=== PATIENT | female | born 1995 ===

== ENCOUNTER 2024-02-24 06:41 | Inpatient (IN) ==
--- OUTSIDE RECORDS SUMMARY | 2024-02-24 06:48 | External Medical Summary | Summary of Care ---
Author Name Unknown Organization [facility] Address [address] [place] [address] Phone [phone] Care Team Providers Care Scrum Project Manager Name Role Phone Juliet Valenzuela PA-C Primary Care Provider Reason for Visit * Reason Comments Return Visit Encounter Details Date Type Department Care Team (Late st Contact Info) Description 02/22/2024 12:30 PM EST Office Visit Gynecology/Obstetric s Ana Reynolds [address] [place] [phone] Jeffery Copeland MD [address] [place] [phone] Normal in third trimester*; Health counseling; Diet controlled gestational diabetes mellitus (GDM) in third trimester Allergies No known active allergiesdocumented as of this encounter (statuses as of 02/22/2024) Medications 28-0.8 MG Oral Tablet Take by mouth. Active Iron 325 (65 Fe) MG Oral Tablet Take by mouth. Active OneTouch Verio Flex System w/Device KitIndications:G estational diabetes mellitus (GDM) in third trimester, gestational diabetes method of control unspecified Use to test blood sugars 4 times daily (fasting, 1 hour after breakfast, lunch, and dinner) 1 Kit 12/11/2023 Active OneTouch Verio In Vitro Strip (Glucose Blood)Indication s:Gestational diabetes mellitus (GDM) in third trimester, gestational diabetes method of control unspecified Use to test blood sugars 4 times daily (fasting, 1 hour after breakfast, lunch, and dinner) 125 Strip 6 12/11/2023 Active Timmy Lindsey Lancets 30GIndications:G estational diabetes mellitus (GDM) in third trimester, gestational diabetes method of control unspecified Use to test blood sugars 4 times daily (fasting, 1 hour after breakfast, lunch, and dinner) 200 Each 6 12/11/2023 Active documented as of this encounter (statuses as of 02/22/2024) Active Problems Problem Noted Date Diagnosed Date Supervision of high risk in third trim katherine 12/18/2023 Gestational diabetes mellitus (GDM) in third tri mester 12/11/2023 Overview (02/18/2024): Diagnosed at 29 weeks Nutrition consult ordered Lab Results Component Value Date/Time 50-G GESTATIONAL GLUCOSE, 1 HOUR - [facility] 169 (H) 11/28/2023 10:35 AM 100-G GESTATIONAL GLUCOSE, 1 HOUR - [facility] 192 (H) 12/11/2023 09:40 AM 100-G GESTATIONAL GLUCOSE, 2 HOUR - [facility] 162 (H) 12/11/2023 10:43 AM 100-G GESTATIONAL GLUCOSE, 3 HOUR - [facility] 83 12/11/2023 11:40 AM 100-G GESTATIONAL GLUCOSE, FASTING - [facility] 85 12/11/2023 08:36 AM She reports her home blood glucose as following: DATE Fasting 1 hr after Breakfast 1 hr after Lunch 1 hr after Dinner 12/12/2023 99 12/13/23 82 130 113 120 12/14/23 86 106 153 Chipotle burrito x 12/15/23 85 153 102 118 12/16/23 76 99 106 77 12/17/23 87 155 Cereal x 96 12/18/23 92 121 12/18/23: MFM ADAPT consult complete. Referred to [facility]. Instructions provided to report blood sugars each week for MFM review. Reviewed diet & exercise recommendations. 12/24/23: RPM reviewed; Stable 01/01/20243546-BMY-dmpwmy. Some missed post prandial values. 01/08/20248495-KBJ-zvowwoc stable (< 50% elevated). Multiple missed readings. Sent message to be consistent with testing four times daily and reporting. 01/16/20241971-YNM-vvaolbxf one fasting number in the past week. Sent message via [employer] melanie asking her to update. Sent message to patient and [facility] to schedule follow up ADAPT appointment due to not reporting. 01/22/20243327-ENE-iscutmlw 2 days in the past week. Sent message via [employer] & Symptify asking her to update. Sent message to [facility] to schedule follow up ADAPT due to patient not reporting. 01/29/20243924-RLK-uobfbncn 2 days in the past week. Sent message to update numbers. 02/05/24: RPM reviewed; no readings reported for past 7 days. No show for adapt visit today.Message sent via [employer] and chat to update readings. 02/12/20246373-PWP-zaw reporting. Sent message via [employer] and Symptify reminding her of follow up ADAPT appointment scheduled 02/18/2024 02/12/24: Also notified patient's OB provider that patient is not reporting blood sugars to [facility] 02/18/24: Follow-up ADAPT visit complete; of those values reported, stable; encouraged consistent testing/reporting; continue diet controlled Assessment & Plan (12/21/2023 11:02 AM EDT): Working with ADAPT. Assessment & Plan (12/18/2023 1:24 PM EDT): CONSIDERATIONS: Reviewed etiology and risks associated with gestational diabetes mellitus (GDM), including risks to , fetus, and maternal progression to Type 2 DM. Instructed on proper use of glucometer; supplies ordered, if indicated. Advised that life-long screening for diabetes is recommended every 1-3 years. RECOMMENDATIONS: Recommend monitoring blood sugars with daily fasting blood sugar (maintained at less than 95) and 1 hour postprandial measurements (maintained at less than 140). Medications should be adjusted to maintain these target values. Report levels to M (Maternal- Medicine) weekly. Recommend nutrition consult with RDN (Registered Dietitian Automation Control Technician). Lifestyle changes are also indicated including optimizing gestational weight gain and physical activity of 30 minutes per day, if not otherwise contraindicated in . Insulin is preferred if medications are indicated to optimize euglycemia. Metformin (preferred over glyburide) may also be used in some circumstances. Reviewed the risks and benefits of each. Recommend ultrasound, surveillance and delivery as follows: A1GDM, delivery should be accomplished by 41w0d. A2GDM, recommend growth assessment with MFM every 4 weeks, initiate surveillance with twice weekly NSTs at 32 weeks and continue until delivery at 39 weeks. Recommend intrapartum monitoring every 1-2 hours (A2GDM) or every 4 hours (A1GDM) and treat with insulin if indicated. Recommend 2-hour glucose tolerance testing with 75-gram glucose load during admission (or 6-8 weeks if not completed). Health counseling 11/28/2023 Overview (02/22/2024): Problem Action Taken Date entered Entered by Date resolved [facility] 11/28/2023 Nayla Jefferson RN 11/28/2023 nutrition WIC program discussed. Due date letter given in case pt desires 11/28/2023 Nayla Jefferson RN 11/28/2023 Routine dental visits Dental care encouraged- referred to [facility] Family website 11/28/2023 Nayla Jefferson RN 11/28/2023 Problem Action Taken Date entered Entered by Date resolved Current needs or questions Patient denies having any current needs or questions 01/21/2024 Kathia Spence RN 01/21/2024 Problem Action Taken Date entered Entered by Date resolved Current needs or questions Patient denies having any current needs or questions 02/15/2024 Neha Bradshaw RN 02/15/24 Problem Action Taken Date entered Entered by Date resolved Current needs or questions Patient denies having any current needs or questions 02/22/2024 Kathia Spence RN 02/22/2024 Assessment & Plan (02/04/2024 2:03 PM EST): Problem Action Taken Date entered Entered by Date resolved bleeding Provider eval 02/04/2024 Nayla Jefferson RN 02/04/2024 Assessment & Plan (01/07/2024 12:10 PM EST): Problem Action Taken Date entered Entered by Date resolved Current needs or questions Patient denies having any current needs or questions 01/07/2024 Nayla Jefferson RN 01/07/2024 Assessment & Plan (12/11/2023 12:07 PM EDT): Problem Action Taken Date entered Entered by Date resolved Current needs or questions Patient denies having any current needs or questions 12/11/2023 Nayla Jefferson RN 12/11/2023 Normal 08/31/2023 Estimated Date of Delivery Comme nts Yes 02/29/2024 Based on Ultraso und documented as of this encounter (statuses as of 02/22/2024) Immunizations Name Administration Dates Next Due Covid-19 Ad26, Single Dose (Zacarias/J&J) 021 TDAP, Age 7 and older, IM (Adacel) 12/11/2023 documented as of this encounter Social History Tobacco Use Types Packs/Day Years Used Date Smoking Tobacco: Never Smokeless Tobacco: Never Alcohol Use Standard Drinks/Week Comments Not Currently 0 (1 standard drink = 0.6 oz pur e alcohol) Hunger Vital Sign Answer Date Recorded Within the past 12 months, y ou worried that your food would run out before you got the money to buy more. Never true 11/30/19 24 Within the past 12 months, t he food you bought just didn't last and you didn't have money to get more. Never true 11/30/2023 Childcare Answer Date Recorded Do you feel overwhelmed with taking care of a child, family member or friend? No 11/30/2023 Does your family need help f inding childcare? (Household - for ages 0-17 years) Not on file 11/30/2023 Clothing Answer Date Recorded Have you been unable to get clothing when it was really needed? No 11/30/2023 Is your family able to get c lothes or diapers when needed? (Household - for ages 0-17 years) Not on file 11/30/2023 Personal Safety Answer Date Recorded Do you feel unsafe or have concerns for your saf ety? No 11/30/2023 Do you have concerns for you r family's safety? (Household - for ages 0-17 years) Not on file 11/30/2023 Utilities Answer Date Recorded Do you have trouble paying y our heating, water, or electric bill? No 11/30/2023 Is your family able to pay t he heat, water, or electric bill? (Household - for ages 0-17 years) Not on file 11/30/2023 Does your family have access to good internet? (Household - for ages 0-17 years) Not on file 11/30/2023 Employment Status Answer Date Recorded Are you unemployed or without regular income? No 11/30/2023 Does the household have a [facility] source [facility] income? (Household - for ages 0-17 years) Not on file 11/30/2023 Social Connections Answer Date Recorded How often do you feel lonely or isolated from th ose around you? Never 11/30/2023 Financial Resource Strain Answer Date R ecorded Do you have any trouble payi ng for your medications, or do you think you might in the future? No 11/30/2023 Does your family have troubl e paying for medicine? (Household - for ages 0-17 years) Not on file 11/30/2023 Transportation Needs Answer Date Record ed READ ONLY Do you have troubl e getting a ride to medical visits or work? Never True 11/30/2023 Does your family have a hard time getting a ride to doctors visits? (Household - for ages 0-17 years) Not on file 11/30/2023 Has lack of transportation k ept you from medical appointments, meetings, work, or from getting things needed for daily living? Check all that apply. No 11/30/2023 Do you (or your family) have trouble finding or paying for a ride (transportation)? (Household - for ages 0-17 years) Not on file 11/30/2023 Housing Stability Answer Date Recorded Do you currently live in a s helter or have no steady place to sleep at night? No 11/30/2023 READ ONLY Do you think you a re at risk of becoming homeless? No 11/30/2023 Does your family worry about paying for your home or becoming homeless? (Household - for ages 0-17 years) Not on file 0 11/30/2023 Are you homeless or worried that you might be in the future? No 11/30/2023 Are you (or your family) dick eless or worried that you might be in the future? (Household - for ages 0-17 years) Not on file Food Insecurity Answer Date Recorded Do you need food for this week? No 11/30/2023 Are you able to get enough f ood for your family? (Household - for ages 0-17 years) Not on file 11/30/2023 Does your family need food t his week? (Household - for ages 0-17 years) Not on file 11/30/2023 Do you always have enough fo od for your family? (Household - for ages 0-17 years) Not on file 11/30/2023 Estimated Date of Delivery Comme nts Yes 02/29/2024 Based on Ultraso und Sex and Gender Information Value Date Recorded Sex Assigned at Female 07/12/2023 12:06 PM EDT Legal Sex Female 4:33 PM EDT Gender Identity Female 07/12/2023 12:06 PM EDT Sexual Orientation Straight 07/12/2023 12 :06 PM EDT documented as of this encounter Last Filed Vital Signs Vital Sign Reading Time Taken Comments Blood Pressure 118/70 02/22/2024 11:25 AM EST Pulse - - Temperature - - Respiratory Rate - - Oxygen Saturation - - Inhaled Oxygen Concentration - - Weight 89.8 kg (198 lb) 02/22/2024 11:25 AM EST Height 167.6 cm (5' 6") 02/22/2024 11:25 AM EST Body Mass Index 31.96 02/22/2024 11:25 AM EST documented in this encounter Progress Notes * Jeffery Copeland MD - 02/22/2024 12:19 PM EST Pt doing well HAKEEM and sono done for growth today EFW is 72 percentile Discussed and reviewed sono with pt Fetus is presently not macrosomic We have discussed /c/sec and induction of labor Pt an spouse are agreeable to induction VE; 1-2/50%/post Plan Ree fo induction of labor documented in this encounter Nursing Notes * Kathia Spence RN - 02/22/2024 11:37 AM EST Patient seen by [facility]. Patient denies any questions or concerns. Kathia Spence RN * Tammy Collins LPN - 02/22/2024 11:25 AM EST 39w0d Pt had growth today HAKEEM 12.0cm Growth 72% documented in this encounter Plan of Treatment Health Maintenance Due Date Last Done Comments Depression Screening 2008 Hepatitis B Vaccine (1 of 3 - 19+ 3-dose series) 10/23/2015 Pap Smear 2017 COVID-19 Vaccine (2 - 2023-2 5 season) 2023 11/25/2020 Influenza Vaccine (FLU shot) (#1) 2023 DTap/Tdap Vaccines (2 - Td o r Tdap) 12/10/2033 12/11/2023 HPV (Gardasil) Vaccine Aged Out No lo nger eligible based on patient's age to complete this topic MENINGOCOCCAL (MENACTRA/MENVEO) Aged Out No longer eligible based on patient's age to complete this topic Pneumococcal Vaccine: Pediat rics (0 to 5 Years) and At-Risk Patients (6 to 64 Years) Aged Out No longer eligi ble based on patient's age to complete this topic documented as of this encounter Medical Devices Not on filedocumented as of this encounter Visit Diagnoses Diagnosis Normal in third trimester- Primary Health counseling Other specified counseling SOB (shortness of breath) Shortness of breath Need for zagnxoryxv-mvpotsm-zomjvzamx (Tdap) vaccine Need for prophylactic vaccination with combined fehmtkvngx-qebzkfn-phauaiebc (DTP) vaccine Gestational diabetes mellitus (GDM) in third trimester, gestational diabetes method of control unspecified Diet controlled gestational diabetes mellitus (GDM) in third trimester- Primary Supervision of high risk in third trimester Unspecified high-risk with 29 completed weeks gestation Diet controlled gestational diabetes mellitus (GDM) in third trimester- Primary Encounter for anatomic survey 30 weeks gestation of state, incidental Normal in third trimester- Primary Health counseling Other specified counseling Diet controlled gestational diabetes mellitus (GDM) in third trimester Normal in third trimester- Primary Health counseling Other specified counseling Diet controlled gestational diabetes mellitus (GDM) in third trimester Vaginal bleeding in Unspecified antepartum hemorrhage, unspecified as to episode of care Normal in third trimester- Primary Health counseling Other specified counseling Diet controlled gestational diabetes mellitus (GDM) in third trimester documented in this encounter Care Teams Scrum Project Manager Relationship Specialty Start Date End Date Juliet Valenzuela PA-C [phone] [place] [phone] PCP - General Physician Mortgage Branch Manager 12/11/23 documented as of this encounter
--- OUTSIDE RECORDS SUMMARY | 2024-02-24 06:48 | External Medical Summary | Summary of Care ---
Author Name Unknown Organization [facility] Address [address] [facility] [place] [address] Phone [phone] Care Team Providers Care Marketing Proposal Coordinator Name Role Phone Juliet Valenzuela PA-C Primary Care Provider Reason for Visit * Reason Comments Follow Up Gestational diabetes Encounter Details Date Type Department Care Team ([facility] Contact Info) Description 02/18/2024 10:50 AM EST Telemedicine Entry Specialist Obstetric MFM [facility] [address] [place] [address] Amanda Cardona CRNP [address] [place] [address] Supervision of high risk in third trimester*; 38 weeks gestation of ; Diet controlled gestational diabetes mellitus (GDM) in third trimester Allergies No known active allergiesdocumented as of this encounter (statuses as of 02/18/2024) Medications 28-0.8 MG Oral Tablet Take by mouth. Active Iron 325 (65 Fe) MG Oral Tablet Take by mouth. Active OneTouch Verio Flex System w/Device KitIndications:G estational diabetes mellitus (GDM) in third trimester, gestational diabetes method of control unspecified Use to test blood sugars 4 times daily (fasting, 1 hour after breakfast, lunch, and dinner) 1 Kit 12/11/2023 Active [employer] Verio In Vitro Strip (Glucose Blood)Indication s:Gestational diabetes mellitus (GDM) in third trimester, gestational diabetes method of control unspecified Use to test blood sugars 4 times daily (fasting, 1 hour after breakfast, lunch, and dinner) 125 Strip 6 12/11/2023 Active Piece of CakeTouch Delica Lancets 30GIndications:G estational diabetes mellitus (GDM) in third trimester, gestational diabetes method of control unspecified Use to test blood sugars 4 times daily (fasting, 1 hour after breakfast, lunch, and dinner) 200 Each 6 12/11/2023 Active documented as of this encounter (statuses as of 02/18/2024) Active Problems Problem Noted Date Diagnosed Date [...] & exercise recommendations. 12/24/23: RPM reviewed; Stable 01/01/20245217-UUH-xwgwel. Some missed post prandial values. 01/08/20244792-NEZ-xluvlsy stable (< 50% elevated). Multiple missed readings. Sent message to be consistent with testing four times daily and reporting. 01/16/20246418-NYM-zedizqwb one fasting number in the past week. Sent message via [employer] maria elena asking her to update. Sent message to patient and [facility] PARs to schedule follow up ADAPT appointment due to not reporting. 01/22/20242480-FCW-ubhxxgtz 2 days in the past week. Sent message via [employer] & [employer] asking her to update. Sent message to [facility] PARs to schedule follow up ADAPT due to patient not reporting. 01/29/20247487-AZM-ccxcesqb 2 days in the past week. Sent message to update numbers. 02/05/24: RPM reviewed; no readings reported for past 7 days. No show for adapt visit today.Message sent via [employer] and chat to update readings. 02/12/20249180-AIQ-yxc reporting. Sent message via [employer] and [employer] reminding her of follow up ADAPT appointment scheduled 02/18/2024 02/12/24: Also notified patient's OB provider that patient is not reporting blood sugars to [facility] 02/18/24: Follow-up ADAPT visit complete; of those [...] maintain these target values. Report levels to MFM (Maternal- Medicine) weekly. Recommend nutrition consult with RDN (Registered Dietitian Fire Engineer). Lifestyle changes are also indicated including optimizing [...] if not completed). Health counseling 11/28/2023 Overview (02/15/2024): Problem Action Taken Date entered Entered by Date resolved First First 11/28/2023 Nayla Jefferson RN 11/28/2023 nutrition WIC program discussed. Due date letter given in case pt desires 11/28/2023 Nayla Jefferson RN 11/28/2023 Routine dental visits Dental care encouraged- referred to [facility] Family website 11/28/2023 Nayla Jefferson RN 11/28/2023 Problem Action Taken Date entered Entered by Date resolved Current needs or questions Patient denies having any current needs or questions 01/21/2024 Kathia Spence RN 01/21/2024 Problem Action Taken Date entered Entered by Date resolved Current needs or questions Patient denies having any current needs or questions 02/15/2024 Neha Bradshaw RN 02/15/24 Assessment & Plan (02/04/2024 2:03 PM EST): [...] as of this encounter (statuses as of 02/18/2024) Immunizations Name Administration Dates Next Due Covid-19 [...] No 11/30/2023 Does the household have a re gular source of income? (Household - for ages [...] PM EDT documented as of this encounter Progress Notes * Amanda Cardona, EDUARDA - 02/18/2024 10:45 AM EST Images from the original note were not included. MATERNAL MEDICINE VISIT Patient location: HOME. I was in a hospital or clinic location. After connecting through televideo,patient was verified with two unique identifiers. 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 Methods to assure confidentiality were taken. Patient acknowledged consent and understanding of pr ivacy and security of the Telemedicine visit. The patient agreed to participate. Balbina Zafar is a 28 year old year old with intrauterine at 38w3d who presents to [facility] for management of diabetes in . CC/HPI: Here for f/u visit. Current issues include: inconsistent testing and reporting - patient reports she was out of town and did not have meter; she has since resumed testing and reporting of blood sugars in RPM Current management: diet controlled Diet: gestational diabetes diet Exercise: walking and yoga ball Completed Nutrition visit on 01/08/2024. Recent growth scan: [facility] US: 12/21/2023 at 30w0d HAKEEM: 15.3 cm EFW: 1656g (68% Hadlock) Glucose review: She reports her home blood glucose as following per Current Health RPM: -She has no other blood sugars to review today. Hypoglycemia episodes: Denies REVIEW OF SYSTEMS: headaches: no nausea/vomiting: denies reports movement: yes (+ kick counts) abdominal pain/tenderness/cramping/contractions: no vaginal bleeding: no vaginal leaking of fluid: no all other systems negative PHYSICAL EXAM: LMP 05/18/2023 (Exact Date) Constitutional: well-developed, well nourished General: pleasant, alert and oriented Neuro: mood and affect normal, alert and oriented, no acute distress DISCUSSION: -We discussed the importance of testing and reporting blood sugars 4 times a day (fasting, one hourafter breakfast, lunch, and dinner). Encourage compliance with CH RPM. Phone number provided to patient for CH team for any troubleshooting if needed. -Briefly reviewed GDM diet recommendations including, avoiding processed sugars, sweetened drinks, white flour. Advised compliance with Fire Engineer. -Recommend eating a snack to help with sugar control in the fasting timeframe. -Encouraged 20-30 minutes a day of exercise (walking, light upper body strength training, yoga, stationary cycling, or swimming). -We discussed the goal of euglycemia in order to create a stable environment for the fetus. She is aware that with diabetes are at increased risk for multiple complications to both mother and fetus -I encouraged the patient to reach out to [facility] in the event that she has any questions regarding diabetes management. RECOMMENDATIONS: Management: continue diet controlled with more consistent testing/reporting Follow up for glucose management in 1 week via [facility] Maria Elena. Thank you for allowing us to participate in the care of this patient. Please call with any questions. EDUARDA Altman 02/18/2024 11:30 AM documented in this encounter Plan of Treatment Upcoming Encounters Date Type Department Care Team (Late st Contact Info) Description 02/22/2024 11:15 AM EST Imaging Radiology [facility] 2nd [facility] [address] [place] [address] 02/22/2024 12:30 PM EST Office Visit Gynecology/Obstetrics [facility] [address] [place] [place] [address] Jeffery Copeland MD [address] [facility] [place] [address] Health Maintenance Due Date Last Done Comments [...] of breath) Shortness of breath Need for ewirvkkbev-qigdkjo-zhlfwienm (Tdap) vaccine Need for prophylactic vaccination with combined rdouflwzib-maxklkv-cwzvkilbi (DTP) vaccine Gestational diabetes mellitus (GDM) in [...] hemorrhage, unspecified as to episode of care Supervision of high risk in third trimester- Primary Unspecified high-risk 38 weeks gestation of state, incidental Diet controlled gestational diabetes mellitus (GDM) in third trimester documented in this encounter Care Teams Marketing Proposal Coordinator Relationship Specialty Start Date End Date Juliet Valenzuela PA-C [address] [facility] [place] [address] PCP - General Physician Project Assistant 12/11/23 documented as of this encounter
--- OUTSIDE RECORDS SUMMARY | 2024-02-24 06:48 | External Medical Summary | Summary of Care ---
Author Name Unknown Organization [facility] Address [address] [facility] [place] [address] Phone [phone] Care Team Providers Care National Sales Executive Name Role Phone Juliet Valenzuela PA-C Primary Care Provider Reason for Visit * Reason Comments Return Visit Encounter Details Date Type Department Care Team (Late st Contact Info) Description 02/15/2024 2:45 PM EST Office Visit Gynecology/Obstetri jaden Reynolds [address] [place] [address] Amanda Bill PA-C [address] [place] [address] Nurse [facility] Narcisa [address] [place] [address] High-risk , third trimester*; Diet controlled gestational diabetes mellitus (GDM) in third trimester; Health counseling Allergies No known active allergiesdocumented as of this encounter (statuses as of 02/15/2024) Medications 28-0.8 MG Oral Tablet Take by mouth. Active Iron 325 (65 Fe) MG Oral Tablet Take by mouth. Active OneTouch Verio Flex System w/Device KitIndications:G estational diabetes mellitus (GDM) in third trimester, gestational diabetes method of control unspecified Use to test blood sugars 4 times daily (fasting, 1 hour after breakfast, lunch, and dinner) 1 Kit 12/11/2023 Active [employer] Verio In Vitro Strip (Glucose Blood)Indication s:Gestational diabetes mellitus (GDM) in third trimester, gestational diabetes method of control unspecified Use to test blood sugars 4 times daily (fasting, 1 hour after breakfast, lunch, and dinner) 125 Strip 6 12/11/2023 Active PGP [employer] Delica Lancets 30GIndications:G estational diabetes mellitus (GDM) in third trimester, gestational diabetes method of control unspecified Use to test blood sugars 4 times daily (fasting, 1 hour after breakfast, lunch, and dinner) 200 Each 6 12/11/2023 Active documented as of this encounter (statuses as of 02/15/2024) Active Problems Problem Noted Date Diagnosed Date Supervision of high risk in third [facility] katherine 12/18/2023 Gestational diabetes mellitus (GDM) in third [facility] 12/11/2023 Overview (02/12/2024): Diagnosed at 29 weeks Nutrition consult ordered [...] & exercise recommendations. 12/24/23: RPM reviewed; Stable 01/01/20246752-SYO-zexxgj. Some missed post prandial values. 01/08/20241249-SAG-juamquw stable (< 50% elevated). Multiple missed readings. Sent message to be consistent with testing four times daily and reporting. 01/16/20243083-ADH-mgmdnvdz one fasting number in the past week. Sent message via [employer] melanie asking her to update. Sent message to patient and [facility] PARs to schedule follow up ADAPT appointment due to not reporting. 01/22/20242352-XLH-mprrchtr 2 days in the past week. Sent message via [employer] & [email or web address] asking her to update. Sent message to [facility] PARs to schedule follow up ADAPT due to patient not reporting. 01/29/20249086-IIS-qijsukxh 2 days in the past week. Sent message to update numbers. 02/05/24: RPM reviewed; no readings reported for past 7 days. No show for adapt visit today.Message sent via [employer] and chat to update readings. 02/12/20243874-AHS-cal reporting. Sent message via [employer] and [email or web address] reminding her of follow up ADAPT appointment scheduled 02/18/2024 02/12/24: Also notified patient's OB provider that patient is not reporting blood sugars to [facility] Assessment & Plan (12/21/2023 11:02 AM EDT): [...] Recommend nutrition consult with RDN (Registered Dietitian Nurse Discharge). Lifestyle changes are also indicated including optimizing [...] First 11/28/2023 Nayla Jefferson RN 11/28/2023 nutrition [place] program discussed. Due date letter given in case pt desires 11/28/2023 Nayla Jefferson RN 11/28/2023 Routine dental visits Dental care encouraged- referred to [facility] Family website 11/28/2023 Nayla Jefferson RN 11/28/2023 [...] as of this encounter (statuses as of 02/15/2024) Immunizations Name Administration Dates Next Due Covid-19 [...] Sign Reading Time Taken Comments Blood Pressure - - Pulse - - Temperature - - Respiratory Rate - - Oxygen Saturation - - Inhaled Oxygen Concentration - - Weight 89.8 kg (198 lb) 02/15/2024 3:04 PM EST Height 167.6 cm (5' 6") 02/15/2024 3:04 PM EST Body Mass Index 31.96 02/15/2024 3:04 PM EST documented in this encounter Progress Notes * Amanda Bill PA-C - 02/15/2024 3:00 PM EST Balbina Zafar is a 28 year old female here for her routine OB appointment at 38w0d Her Estimated Date of Delivery: 02/29/24 REVIEW OF SYSTEMS She affirms movement. Denies LOF, regular contractions. + vaginal bleeding. Was seen in the ED in [place] for vaginal bleeding. D/C safe to home. Today,she reports her bleeding is slowing. Is describes as more of a light spotting than a heavy vaginal bleeding. PHYSICAL EXAM Filed Vitals: 02/15/24 1504 Weight: 89.8 kg (198 lb) Height: 1.676 m (5' 6") +FHT 140s Fundal height 38 cm Position: cephalic ASSESSMENT/PLAN Normal (Primary) Gestational diabetes mellitus (GDM) in third trimester - Patient just got back from [place] - did not take supplies to check sugars with her. Plans to start when she gets home today. - Strongly encouraged this and for her to report sugars to [facility]. Appointment scheduled for follow-up02/17 which patient is aware of and plans to keep. Health counseling Supervision of - labor precautions and kick counts reviewed - recommended previously patient repeat growth U/S at 39w for follow-up on LGA. Able to schedule patient for growth U/S 02/21 with JN appointment following with Dr. Copeland to provide delivery recommendations. RTO in 1 week for JN Bill PA-C 02/15/2024 * Tammy Collins LPN - 02/15/2024 3:00 PM EST 38w0d documented in this encounter Nursing Notes * Neha Bradshaw RN - 02/15/2024 3:12 PM EST Chief Complaint Patient presents with Return Visit Patient seen by [facility] Public Relations Account Executive. Patient denies any questions or concerns. documented in this encounter Plan of Treatment Upcoming Encounters Date Type Department Care Team ([facility] Contact Info) Description 02/18/2024 10:50 AM EST Telemedicine Replenisher Obstetric MFM Sami Mccloud [address] [place] [phone] Amanda Cardona CRNP [address] [place] [address] 02/22/2024 11:15 AM EST Imaging Radiology [address] [address] 02/22/2024 12:30 PM EST Office Visit Gynecology/Obstetrics [facility] [address] [place] [address] Jeffery Copeland MD [address] [place] [address] Scheduled Orders Name Type Priority Associated Diagnoses Orde r Schedule US PREG FOLLOW-UP EACH FETUS Medical Imaging Routine High-risk , third trimester Diet controlled gestational diabetes mellitus (GDM) in third trimester Expected: 02/15/2024, Expires: 03/17/2025 Health Maintenance Due Date Last Done Comments Depression Screening 2008 Hepatitis B Vaccine (1 of 3 - 19+ 3-dose series) 10/23/2015 Pap Smear 2017 COVID-19 Vaccine ( - 2023-2 5 season) 2023 11/25/2020 Influenza [...] of breath) Shortness of breath Need for nmueruyqni-ljuznxt-gykhwzaav (Tdap) vaccine Need for prophylactic vaccination with combined cyavivpryj-edknzpp-lbrohbfqs (DTP) vaccine Gestational diabetes mellitus (GDM) in [...] hemorrhage, unspecified as to episode of care High-risk , third trimester- Primary Diet controlled gestational diabetes mellitus (GDM) in third trimester Health counseling Other specified counseling documented in this encounter Care Teams National Sales Executive Relationship Specialty Start Date End Date Juliet Valenzuela PA-C [address] [facility] [place] [address] PCP - General Physician Career Services Officer 12/11/23 documented as of this encounter
--- OUTSIDE RECORDS SUMMARY | 2024-02-24 06:48 | External Medical Summary | Summary of Care ---
Author Name Unknown Organization [facility] Address [address] [facility] [place] [address] Phone [phone] Care Team Providers Care Dictating Machine Mechanic Name Role Phone Juliet Valenzuela PA-C Primary Care Provider Encounter Details Date Type Department Care Team (Late st Contact Info) Description 02/18/2024 Population Health External Data Unspecified Department Allergies No known active allergiesdocumented as of [...] lunch, and dinner) 1 Kit 12/11/2023 Active [employer] Verio In Vitro Strip (Glucose Blood)Indication s:Gestational diabetes mellitus (GDM) in third trimester, gestational diabetes method of control unspecified Use to test blood sugars 4 times daily (fasting, 1 hour after breakfast, lunch, and dinner) 125 Strip 6 12/11/2023 Active OneTouch Delica Lancets 30GIndications:G estational diabetes mellitus (GDM) [...] (GDM) in third tri mester 12/11/2023 Overview (02/12/2024): Diagnosed at 29 [...] 12/18/23: MFM ADAPT consult complete. Referred to [employer]. Instructions provided to report blood sugars each week for MFM review. Reviewed diet & exercise recommendations. 12/24/23: RPM reviewed; Stable 01/01/20247883-JXW-ifbgqy. Some missed post prandial values. 01/08/20240266-DWI-fyxrmof stable (< 50% elevated). Multiple missed readings. Sent message to be consistent with testing four times daily and reporting. 01/16/20244467-UNP-flizhpfu one fasting number in the past week. Sent message via [employer] melanie asking her to update. Sent message to patient and [facility] PARs to schedule follow up ADAPT appointment due to not reporting. 01/22/20246909-UMS-hxuumrhi 2 days in the past week. Sent message via [employer] asking her to update. Sent message to [facility] PARs to schedule follow up ADAPT due to patient not reporting. 01/29/20249940-EZC-kdkbesio 2 days in the past week. Sent message to update numbers. 02/05/24: RPM reviewed; no readings reported for past 7 days. No show for adapt visit today.Message sent via [employer] and chat to update readings. 02/12/20245934-SSL-afy reporting. Sent message via [employer] and [employer] reminding her of follow up ADAPT appointment scheduled 02/18/2024 02/12/24: Also notified patient's OB provider that patient is not reporting blood sugars to [facility] Assessment & Plan (12/21/2023 11:02 AM [...] Recommend nutrition consult with RDN (Registered Dietitian Scientific Diver). Lifestyle changes are also indicated including optimizing [...] dental visits Dental care encouraged- referred to [facility] Family website 11/28/2023 Nayla Jefferson RN [...] PM EDT documented as of this encounter Plan of Treatment Upcoming Encounters Date Type Department Care Team (Late st Contact Info) Description 02/18/2024 10:50 AM EST Telemedicine Lead Architect [facility] [address] [place] [address] Amanda Cardona CRNP [address] [facility] [address] 02/22/2024 11:15 AM EST [facility] [address] [place] [address] 02/22/2024 12:30 PM EST Office Visit Gynecology/Obstetrics [facility] [address] [place] [address] Jeffery Copeland MD [address] [place] [address] Health Maintenance Due Date Last Done Comments [...] Not on filedocumented as of this encounter Care Teams Dictating Machine Mechanic Relationship Specialty Start Date End Date Juliet Valenzuela PA-C [address] [facility] [place] [address] PCP - General Physician Singe Machine Operator 12/11/23 documented as of this encounter
--- OUTSIDE RECORDS SUMMARY | 2024-02-24 06:48 | External Medical Summary | Summary of Care ---
Author Name Unknown Organization [facility] Address [address] [place] [address] Phone [phone] Care Team Providers Care Joiner Name Role Phone Juliet Valenzuela PA-C Primary Care Provider Reason for Visit * Reason Onset Date Comments Appointment 02/06/2024 Encounter Details Date Type Department Care Team (Late st Contact Info) Description 02/06/2024 Telephone Director Of Integrated Marketing Obstetrics Maternal Medicine, [place] [address] [place], [place] [phone] [place], Nurse Director Of Integrated Marketing [facility] [address] [place], [place] [phone] Appointment Allergies No known active allergiesdocumented as of this encounter (statuses as of 02/08/2024) Medications 28-0.8 MG Oral Tablet Take by mouth. Active Iron 325 (65 Fe) MG Oral Tablet Take by mouth. Active Zendrive Verio Flex System w/Device KitIndications:G estational diabetes mellitus (GDM) in third trimester, gestational diabetes method of control unspecified Use to test blood sugars 4 times daily (fasting, 1 hour after breakfast, lunch, and dinner) 1 Kit 12/11/2023 Active First RetailTouch Verio In Vitro Strip (Glucose Blood)Indication s:Gestational diabetes mellitus (GDM) in third trimester, gestational diabetes method of control unspecified Use to test blood sugars 4 times daily (fasting, 1 hour after breakfast, lunch, and dinner) 125 Strip 6 12/11/2023 Active OneTojulio Lindsey Lancets 30GIndications:G estational diabetes mellitus (GDM) in third trimester, gestational diabetes method of control unspecified Use to test blood sugars 4 times daily (fasting, 1 hour after breakfast, lunch, and dinner) 200 Each 6 12/11/2023 Active documented as of this encounter (statuses as of 02/08/2024) Active Problems Problem Noted Date Diagnosed Date Supervision of high risk in third trim katherine 12/18/2023 Gestational diabetes mellitus (GDM) in third tri mester 12/11/2023 Overview (02/05/2024): Diagnosed at 29 weeks Nutrition consult ordered [...] & exercise recommendations. 12/24/23: RPM reviewed; Stable 01/01/20240431-DKI-fubgib. Some missed post prandial values. 01/08/20240371-CJC-dldescg stable (< 50% elevated). Multiple missed readings. Sent message to be consistent with testing four times daily and reporting. 01/16/20243276-AMX-aqaihydb one fasting number in the past week. Sent message via [employer] melanie asking her to update. Sent message to patient and [facility] to schedule follow up ADAPT appointment due to not reporting. 01/22/20249637-HLN-tkoiiidb 2 days in the past week. Sent message via [employer] asking her to update. Sent message to [facility] to schedule follow up ADAPT due to patient not reporting. 01/29/20246397-PCX-royrmrxl 2 days in the past week. Sent message to update numbers. 02/05/24: RPM reviewed; no readings reported for past 7 days. No show for adapt visit today.Message sent via [employer] and chat to update readings. Assessment & Plan (12/21/2023 11:02 AM EDT): [...] Recommend nutrition consult with RDN (Registered Dietitian Life Care Planner). Lifestyle changes are also indicated including optimizing [...] if not completed). Health counseling 11/28/2023 Overview (01/21/2024): Problem Action Taken Date entered Entered by Date resolved First First 11/28/2023 Nayla Jefferson RN 11/28/2023 nutrition WIC program discussed. Due date letter given in case pt desires 11/28/2023 Nayla Jefferson RN 11/28/2023 Routine dental visits Dental care encouraged- referred to [facility] Family website 11/28/2023 Nayla Jefferson RN 11/28/2023 Problem Action Taken Date entered Entered by Date resolved Current needs or questions Patient denies having any current needs or questions 01/21/2024 Kathia Spence RN 01/21/2024 Assessment & Plan (02/04/2024 2:03 PM EST): [...] as of this encounter (statuses as of 02/08/2024) Immunizations Name Administration Dates Next Due Covid-19 [...] PM EDT documented as of this encounter Miscellaneous Notes * Telephone Encounter - Sally Vuong OSA - 02/08/2024 4:17 PM EST Spoke with Balbina. Appointment scheduled. Patient aware of date, time and location of Maternal Medicine appointment. * Telephone Encounter - Sally Vuong OSA - 02/06/2024 10:17 AM EST Phone call to patient. Left message on Balbina's voice mail. Encouraged patient to return call to [phone] to assist with scheduling. * Telephone Encounter - Sally Vuong OSA - 02/06/2024 10:16 AM EST Images from the original note were not included. Derek Yost, RN P [facility] Referral Scheduling Pool/Class please reschedule pt for missed f/u adapt appt from 02/04-thanks documented in this encounter Plan of Treatment Upcoming Encounters Date Type Department Care Team (Late st Contact Info) Description 02/15/2024 2:45 PM EST Office Visit Gynecology/Obstetrics Ana Reynolds [address] [place] [address] Amanda Bill PA-C [address] [place] [address] Nurse Destinee Reynolds Beginnings Return Narcisa [address] [place] [address] 02/18/2024 10:50 AM EST Telemedicine Director Of Integrated Marketing Obstetric MFM [facility] [address] [facility] [place] [id number] Amanda Cardona CRNP [address] [facility] [place] [address] Health Maintenance Due Date Last Done Comments [...] filedocumented as of this encounter Care Teams Joiner Relationship Specialty Start Date End Date Juliet Valenzuela PA-C [address] [facility] [place] [address] PCP - General Physician Metal Tube Cutter 12/11/23 documented as of this encounter
--- OUTSIDE RECORDS SUMMARY | 2024-02-24 06:49 | External Medical Summary | Summary of Care ---
Author Name Unknown Organization [facility] Address [address] [place] [address] Phone [phone] Care Team Providers Care Wool Brusher Name Role Phone Juliet Valenzuela PA-C Primary Care Provider Reason for Visit * Reason Onset Date Comments Appointment 02/06/2024 Encounter Details Date Type Department Care Team (Late st Contact Info) Description 02/06/2024 Telephone Furnace Loader Obstetrics Maternal Medicine, [place] [address] [place], [place] [phone] [place], Nurse Furnace Loader [facility] [address] [place], [place] [phone] Appointment Allergies No known active allergiesdocumented as of this encounter (statuses as of 02/06/2024) Medications 28-0.8 MG Oral Tablet Take by mouth. Active Iron 325 (65 Fe) MG Oral Tablet Take by mouth. Active ForceManager Verio Flex System w/Device KitIndications:G estational diabetes mellitus (GDM) in third trimester, gestational diabetes method of control unspecified Use to test blood sugars 4 times daily (fasting, 1 hour after breakfast, lunch, and dinner) 1 Kit 12/11/2023 Active DrywaveTouch Verio In Vitro Strip (Glucose Blood)Indication s:Gestational [...] as of this encounter (statuses as of 02/06/2024) Active Problems Problem Noted Date Diagnosed Date [...] & exercise recommendations. 12/24/23: RPM reviewed; Stable 01/01/20248044-JON-qnvfbp. Some missed post prandial values. 01/08/20241710-GAS-uqbotyr stable (< 50% elevated). Multiple missed readings. Sent message to be consistent with testing four times daily and reporting. 01/16/20247230-JTZ-esdqiike one fasting number in the past week. Sent message via [employer] melanie asking her to update. Sent message to patient and [facility] to schedule follow up ADAPT appointment due to not reporting. 01/22/20247363-ECM-oltgwxlg 2 days in the past week. Sent message via [employer] asking her to update. Sent message to [facility] to schedule follow up ADAPT due to patient not reporting. 01/29/20246736-BIC-jvifuiit 2 days in the past week. Sent message to update numbers. 02/05/24: RPM reviewed; no readings reported for past 7 days. No show for adapt visit today.Message sent via [employer] and chat to update readings. Assessment & [...] Recommend nutrition consult with RDN (Registered Dietitian Machinist Linotype). Lifestyle changes are also indicated including optimizing [...] dental visits Dental care encouraged- referred to [facility] Family website 11/28/2023 Nayla Jefferson RN 11/28/2023 [...] as of this encounter (statuses as of 02/06/2024) Immunizations Name Administration Dates Next Due Covid-19 [...] mail. Encouraged patient to return call to [phone] to assist with scheduling. * Telephone Encounter - Sally Vuong OSA - 02/06/2024 10:16 AM EST Images from the original note were not included. Derek Yost, RN P [facility] Referral Scheduling Pool/Class please reschedule pt for [...] filedocumented as of this encounter Care Teams Wool Brusher Relationship Specialty Start Date End Date Juliet Valenzuela PA-C [address] [facility] [place] [address] PCP - General Physician Registered Dietician 12/11/23 documented as of this encounter
--- OUTSIDE RECORDS SUMMARY | 2024-02-24 06:49 | External Medical Summary | Summary of Care ---
Author Name Unknown Organization [facility] Address [address] [place] [address] Phone [phone] Care Team Providers Care Export Sales Assistant Name Role Phone Juliet Valenzuela PA-C Primary Care Provider Reason for Visit * Reason Onset Date Comments Appointment 02/06/2024 Encounter Details Date Type Department Care Team (Late st Contact Info) Description 02/06/2024 Telephone Landscape Crew Leader Obstetrics Maternal Medicine, [place] [address] [place], [place] [phone] [place], Nurse Landscape Crew Leader [facility] [address] [place], [place] [phone] Appointment Allergies No known active allergiesdocumented as of this encounter (statuses as of 02/06/2024) Medications 28-0.8 MG Oral Tablet Take by mouth. Active Iron 325 (65 Fe) MG Oral Tablet Take by mouth. Active BioGenerics Verio Flex System w/Device KitIndications:G estational diabetes mellitus (GDM) in third trimester, gestational diabetes method of control unspecified Use to test blood sugars 4 times daily (fasting, 1 hour after breakfast, lunch, and dinner) 1 Kit 12/11/2023 Active AlkermesTouch Verio In Vitro Strip (Glucose Blood)Indication s:Gestational [...] & exercise recommendations. 12/24/23: RPM reviewed; Stable 01/01/20240337-PZJ-pnzddp. Some missed post prandial values. 01/08/20241444-KWY-zqybewn stable (< 50% elevated). Multiple missed readings. Sent message to be consistent with testing four times daily and reporting. 01/16/20246274-OKY-cozmerhr one fasting number in the past week. Sent message via [employer] melanie asking her to update. Sent message to patient and [facility] to schedule follow up ADAPT appointment due to not reporting. 01/22/20242707-WTS-ekbiypof 2 days in the past week. Sent message via [employer] asking her to update. Sent message to [facility] to schedule follow up ADAPT due to patient not reporting. 01/29/20246205-QVD-somlsctk 2 days in the past week. Sent message to update numbers. 02/05/24: RPM reviewed; no readings reported for past 7 days. No show for adapt visit today.Message sent via [employer] and chat to update readings. Assessment & [...] Recommend nutrition consult with RDN (Registered Dietitian Membership Administrator). Lifestyle changes are also indicated including optimizing [...] dental visits Dental care encouraged- referred to [facility] Family website 11/28/2023 Nayla Jefferson RN [...] Miscellaneous Notes * Telephone Encounter - Sally Voung OSA - 02/06/2024 10:17 AM EST Phone call to patient. Left message on Balbina's voice mail. Encouraged patient to return call to [phone] to assist with scheduling. * Telephone Encounter - Sally Vuong OSA - 02/06/2024 10:16 AM EST Images from the original note were not included. Derek Yost, RN P [facility] Referral Scheduling Pool/Class please reschedule pt for [...] filedocumented as of this encounter Care Teams Export Sales Assistant Relationship Specialty Start Date End Date Juliet Valenzuela PA-C [address] [facility] [place] [address] PCP - General Physician Mine Equipment Design Engineer 12/11/23 documented as of this encounter
--- OUTSIDE RECORDS SUMMARY | 2024-02-24 06:49 | External Medical Summary | Summary of Care ---
Author Name Unknown Organization [facility] Address [address] [place] [address] Phone [phone] Care Team Providers Care Departmental Shipping Clerk Name Role Phone Juliet Valenzuela PA-C Primary Care Provider Reason for Visit * Reason Onset Date Comments Self-Blood Glucose Monitoring 02/07/2024 Encounter Details Date Type Department Care Team ([facility] st Contact Info) Description 02/07/2024 Telephone Fan Balancer Obstetrics Maternal Medicine [facility], Chanell Rain [address] [facility] [place] [address] [place], Nurse Fan Balancer [address] [address] Self-Blood Glucose Monitoring (/) Allergies No known active allergiesdocumented as of this encounter (statuses as of 02/07/2024) Medications 28-0.8 MG Oral Tablet Take by [...] as of this encounter (statuses as of 02/07/2024) Active Problems Problem Noted Date Diagnosed Date [...] & exercise recommendations. 12/24/23: RPM reviewed; Stable 01/01/20245008-BOO-kopnxe. Some missed post prandial values. 01/08/20248428-TUP-lbtraes stable (< 50% elevated). Multiple missed readings. Sent message to be consistent with testing four times daily and reporting. 01/16/20242301-GMM-gerzwflh one fasting number in the past week. Sent message via [employer] melanie asking her to update. Sent message to patient and [facility] to schedule follow up ADAPT appointment due to not reporting. 01/22/20248378-AWZ-jordsthh 2 days in the past week. Sent message via [employer] asking her to update. Sent message to [facility] to schedule follow up ADAPT due to patient not reporting. 01/29/20243749-EKX-wqgsbqak 2 days in the past week. Sent message to update numbers. 02/05/24: RPM reviewed; no readings reported for past 7 days. No show for adapt visit today.Message sent via [employer] and chat to update readings. Assessment & [...] Recommend nutrition consult with RDN (Registered Dietitian Halfway House Counselor). Lifestyle changes are also indicated including optimizing [...] visits Dental care encouraged- referred to [facility] Family website 11/28/2023 Nayla Jefferson [...] as of this encounter (statuses as of 02/07/2024) Immunizations Name Administration Dates Next Due Covid-19 [...] encounter Miscellaneous Notes * Telephone Encounter - Derek Yost RN - 02/07/2024 8:46 AM EST Balbina has not been reporting blood sugars to maternal medicine and did not show for 02/05/2024 follow up ADAPT appointment. Called Balbina who states she is in [place] for the past few days and does not have her log or meter with her. She states she will be returning home tomorrow and will resumetesting and send her most recent testing values via [employer] when she gets home (states she is having difficulty with the Current Health melanie). documented in this encounter Plan of Treatment [...] filedocumented as of this encounter Care Teams Departmental Shipping Clerk Relationship Specialty Start Date End Date Juliet Valenzuela PA-C [address] [facility] [place] [address] PCP - General Physician Dental Receptionist 12/11/23 documented as of this encounter
--- OUTSIDE RECORDS SUMMARY | 2024-02-24 06:49 | External Medical Summary | Summary of Care ---
Author Name Unknown Organization [facility] Address [address] [facility] [place] [address] Phone [phone] Care Team Providers Care Wastewater Engineer Name Role Phone Juliet Valenzuela PA-C Primary Care Provider Reason for Visit * Reason Comments Healthy Beginnings Return Encounter Details Date Type Department Care Team (Late st Contact Info) Description 02/04/2024 1:15 PM EST Office Visit Gynecology/Obstetri jaden Reynolds [address] [place] [address] Crista Delgado CRNP [address] [place] [address] Nurse Rodolfo Healthy Beginnings Return Narcisa [address] [place] [phone] Normal in third trimester*; Health counseling; Diet controlled gestational diabetes mellitus (GDM) in third trimester; Vaginal bleeding in Allergies No known active allergiesdocumented as of this encounter (statuses as of 02/04/2024) Medications 28-0.8 MG Oral Tablet Take by mouth. Active Iron 325 (65 Fe) MG Oral Tablet Take by mouth. Active OneTouch Verio Flex System w/Device KitIndications:G estational diabetes mellitus (GDM) in third trimester, gestational diabetes method of control unspecified Use to test blood sugars 4 times daily (fasting, 1 hour after breakfast, lunch, and dinner) 1 Kit 12/11/2023 Active Jiglu Verio In Vitro Strip (Glucose Blood)Indication s:Gestational diabetes mellitus (GDM) in third trimester, gestational diabetes method of control unspecified Use to test blood sugars 4 times daily (fasting, 1 hour after breakfast, lunch, and dinner) 125 Strip 6 12/11/2023 Active Fundacity, Incuch Delica Lancets 30GIndications:G estational diabetes mellitus (GDM) in third trimester, gestational diabetes method of control unspecified Use to test blood sugars 4 times daily (fasting, 1 hour after breakfast, lunch, and dinner) 200 Each 6 12/11/2023 Active documented as of this encounter (statuses as of 02/04/2024) Active Problems Problem Noted Date Diagnosed Date Supervision of high risk in third trim katherine 12/18/2023 Gestational diabetes mellitus (GDM) in third tri mester 12/11/2023 Overview (01/29/2024): Diagnosed at 29 weeks Nutrition consult ordered [...] & exercise recommendations. 12/24/23: RPM reviewed; Stable 01/01/20248409-DNI-ylwaji. Some missed post prandial values. 01/08/20241111-EWU-mofmthh stable (< 50% elevated). Multiple missed readings. Sent message to be consistent with testing four times daily and reporting. 01/16/20244798-QQB-tgkyotil one fasting number in the past week. Sent message via [employer] melanie asking her to update. Sent message to patient and [facility] to schedule follow up ADAPT appointment due to not reporting. 01/22/20248933-SZX-xtnxnrnp 2 days in the past week. Sent message via [employer] asking her to update. Sent message to [facility] to schedule follow up ADAPT due to patient not reporting. 01/29/20247272-LTG-uzcelsdx 2 days in the past week. Sent message to update numbers. Assessment & Plan (12/21/2023 11:02 AM EDT): [...] Recommend nutrition consult with RDN (Registered Dietitian Surveillance Agent). Lifestyle changes are also indicated including optimizing [...] visits Dental care encouraged- referred to [facility] Family website 11/28/2023 Nayla Jefferson RN 11/28/2023 [...] as of this encounter (statuses as of 02/04/2024) Immunizations Name Administration Dates Next Due Covid-19 Ad26, Single Dose (Zacarias/Kristel&J) 021 TDAP, Age 7 and older, IM [...] Sign Reading Time Taken Comments Blood Pressure 132/82 02/04/2024 1:39 PM EST Pulse - - Temperature - - Respiratory Rate - - Oxygen Saturation - - Inhaled Oxygen Concentration - - Weight 88.9 kg (196 lb) 02/04/2024 1:39 PM EST Height - - Body Mass Index 31.64 01/07/2024 11:53 AM EST documented in this encounter Progress Notes * Crista Delgado CRNP - 02/04/2024 1:41 PM EST 36w3d Went to [facility] over the weekend with watery bloody discharge. Was evaluated and discharged home, toldnot dilated. Today reports contractions, back pain about every hour. Baby is moving but feels like he has sloweddown. Has a small amount of bleeding with wiping. No fevers. On exam, no blood in vagina or in os. Cervix visually closed, pt declines cervical check. NST and u/s to check placenta today. Reviewed labor signs and FKC. Scheduled w/ADAPT tomorrow for GDM management. GBS completed on L&D on 02/01 - negative. NST reactive, +painful ctx and uterine irritability. Recommend eval on L&D, pt agreeable and comfortable driving herself there now. Dr Murray and unit notified. Data Operations Manager Documentation Provider requested nursery rn. Name of nursery rn: Misty 1 week return EDUARDA Hogue ASSESSMENT assessment with Non-stress Test completed on 02/04/2024 at 36.3 weeks gestation for indicationof bleeding/contractions heart baseline: 140 bpm Variability: Moderate Decelerations: absent Accelerations: present Contractions: Present q1-4 mins, pt visibly uncomfortable NST start time: 1457 - time not changed for DST NST stop time: 1530 NST strip reviewed, interpreted, and approved by OB provider, EDUARDA Hogue . NST strip stored in clinic storage file * Misty Arrington CMA - 02/04/2024 1:39 PM EST 36w3d Went to ER on Sunday for bleeding. Still bleeding with contractions and back pain. Notices blood when using the bathroom. Watery blood, now getting clots. documented in this encounter Nursing Notes * Nayla Jefferson RN - 02/04/2024 2:03 PM EST Patient seen by [facility]. documented in this encounter Miscellaneous Notes * Assessment & Plan Note - Nayla Jefferson RN - 02/04/2024 2:03 PM EST Associated Problem(s): Health counseling Problem Action Taken Date entered Entered by Date resolved bleeding Provider eval 02/04/2024 Nayla Jefferson RN 02/04/2024 documented in this encounter Plan of Treatment Upcoming Encounters Date Type Department Care Team (Late st Contact Info) Description 02/05/2024 11:30 AM EST Telemedicine Resource Room Teacher Obstetric MFM [facility] [address] [place] [address] Amanda Cardona CRNP [address] [place] [address] Health Maintenance Due Date Last Done Comments [...] of breath) Shortness of breath Need for vxkbretncu-tscpljb-iwaymusfn (Tdap) vaccine Need for prophylactic vaccination with combined ydtxtxqqrg-ewoidzk-aglkhxfuh (DTP) vaccine Gestational diabetes mellitus (GDM) in [...] hemorrhage, unspecified as to episode of care documented in this encounter Care Teams Wastewater Engineer Relationship Specialty Start Date End Date Juliet Valenzuela PA-C [address] [facility] [place] [address] PCP - General Physician Dry Cleaning Checker 12/11/23 documented as of this encounter
--- OUTSIDE RECORDS SUMMARY | 2024-02-24 06:49 | External Medical Summary | Summary of Care ---
Author Name Unknown Organization [facility] Address [address] [facility] [place] [address] Phone [phone] Care Team Providers Care Cable Splicing Technician Name Role Phone Juliet Valenzuela PA-C Primary Care Provider Encounter Details Date Type Department Care Team (Late st Contact Info) Description 02/02/2024 Result Scan Unspecified Department <No scans attached> Allergies No known active allergiesdocumented as of [...] MFM ADAPT consult complete. Referred to Current Rounds. Instructions provided to report blood sugars each week for MFM review. Reviewed diet & exercise recommendations. 12/24/23: RPM reviewed; Stable 01/01/[id number]. Some missed post prandial values. 01/08/[id number] stable (< 50% elevated). Multiple missed readings. Sent message to be consistent with testing four times daily and reporting. 01/16/[id number] one fasting number in the past week. Sent message via [employer] melanie asking her to update. Sent message to patient and [facility] to schedule follow up ADAPT appointment due to not reporting. 01/22/[id number] 2 days in the past week. Sent message via [employer] & [facility] asking her to update. Sent message to [facility] to schedule follow up ADAPT due to patient not reporting. 01/29/[id number]-jzfrsfrz 2 days in the past week. Sent [...] Recommend nutrition consult with RDN (Registered Dietitian Steam Blocker). Lifestyle changes are also indicated including optimizing [...] First 11/28/2023 Nayla Jefferson RN 11/28/2023 nutrition [facility] program discussed. Due date letter given in case pt desires 11/28/2023 Nayla Jefferson RN 11/28/2023 Routine dental visits Dental care encouraged- referred to [facility] Family website 11/28/2023 Nayla Jefferson RN 11/28/2023 Problem Action Taken Date entered Entered by Date resolved Current needs or questions Patient denies having any current needs or questions 01/21/2024 Kathia Spence RN 01/21/2024 Assessment & Plan (01/07/2024 12:10 PM EST): [...] No 11/30/2023 Does the household have a [facility] source of income? (Household - for ages [...] Description 02/04/2024 1:15 PM EST Office Visit Gynecology/Obstetrics Ana Reynolds [address] [place] [id number] Crista Delgado CRNP [address] [place] [address] Nurse [facility] Return Narcisa [address] [place] [id number] 02/05/2024 11:30 AM EST Telemedicine [facility] [address] [place] [address] Amanda Cardona CRNP [address] [place] [address] Health Maintenance Due Date Last Done Comments [...] Not on filedocumented as of this encounter Procedures Procedure Name Priority Date/Time Associated Diagnosis Comments OUTSIDE LAB RESULTS 02/02/2024 documented in this encounter Results * OUTSIDE LAB RESULTS (02/02/2024) 02/02/2024 us No Physician Data Unknown LABORATORY Final Result documented in this encounter Care Teams Cable Splicing Technician Relationship Specialty Start Date End Date Juliet Valenzuela PA-C [address] [facility] [place] [address] PCP - General Physician Information Systems Director 12/11/23 documented as of this encounter
[2024-02-24] MEDS ORDERED: LIDOCAINE 1% LOCAL 20 ML VIAL INFIL PRN ×2 (07:50→07:55)
[2024-02-24] MEDS ORDERED: OXYTOCIN 30 UNITS/NSS 30 UNITS/500 ML BAG IV PRN ×2 (07:55→12:43)
[2024-02-24] MEDS: SODIUM CHLORIDE 0.9% 1,000 ML IV SCH (08:00)
[2024-02-24 08:34] LABS: Hematocrit (blood only) 34.8 % (37.0-47.0); Mean Corpuscular Hemoglobin 32.6 pg (25.0-34.0); Mean Corpuscular Hgb Conc 34.5 g/dL (32.0-36.0); Mean Corpuscular Volume 94.6 fL (80.0-100.0); Mean Platelet Volume 10.3 fL (9.4-12.4); Platelet Count 222 K/uL (130-400); RDW Coefficient of Variation 12.8 % (11.5-14.5); RDW Standard Deviation 44.2 fL (36.4-46.3); Red Blood Count 3.68 M/uL (4.20-5.40); White Blood Count 7.65 K/ul (4.8-10.8)
[2024-02-24] MEDS: fentANYL 2 MCG/ML BUPIVacaine 0.125%-NSS 100ML BAG ONE (09:10)
[2024-02-24] MEDS: BUPIVACAINE 0.25% PF 30 ML VIAL ONE (09:12)
[2024-02-24] MEDS: LIDOCAINE 2%/EPINEPHRINE 1:200,000 20 ML PF ONE (09:12)
--- NOTE | 2024-02-24 09:22 | Anesthesiology Consultation ---
Date of Service February 24, 2024 Assessment & Plan Chart Review Chart Review: Acceptable Risk for Labor Epidural Consults Requested none History Height/Weight Height: 5 ft 6 in Weight: 89.811 kg Allergies Allergy/AdvReac Type Severity Reaction Status Date / Time No Known Allergies Allergy Verified 02/04/24 15:34 Medications Home Medications Medication Instructions Recorded Confirmed Last Taken ferrous sulfate 325 mg (65 mg 325 mg PO DAILY 02/02/24 02/24/24 02/22/24 20:00 iron) tablet vits no.124-ferrous fum 1 tab PO DAILY 02/02/24 02/24/24 02/23/24 20:00 27 mg iron-folic acid 800 mcg tablet ( Vitamin) Active Medications Generic Name Dose Route Start Last Admin Trade Name Freq PRN Reason Stop Dose Admin Sodium Chloride 1,000 mls @ 50 mls/hr 02/24/24 08:45 02/24/24 08:30 Nss IV 02/25/24 08:44 50 mls/hr .Q20H SARA Infusion Past Medical History Medical History Gestational diabetes Pituitary adenoma Cholelithiasis Vertigo Past Family History Family History Mother Anemia Father Gout Aunt Thyroid cancer Grandfather (Maternal) Colon cancer Prostate cancer Past Surgical History Surgical History No history of previous surgery Social History Smoking Status: Never smoker Hx Alcohol Use: No Hx Substance Use: No substance use type: does not use Physical Exam Vital Signs Last Vital Signs Temp 36.6 C 02/24/24 06:50 Pulse 90 02/24/24 09:20 Resp 18 02/24/24 06:50 BP 120/64 02/24/24 09:20 Pulse Ox 100 02/24/24 09:16 Testing Laboratory Results 02/24/24 08:23
[2024-02-24] MEDS ORDERED: BUPIVACAINE 0.25% PF 30 ML VIAL EPI PRN (09:23)
[2024-02-24] MEDS ORDERED: diphenhydrAMINE 50 MG/ML VIAL IV PRN (09:23)
[2024-02-24] MEDS ORDERED: fentaNYL citrate PF 100 MCG/2 ML VIAL EPI PRN (09:23)
[2024-02-24] MEDS ORDERED: NALOXONE HCL 1 MG in SODIUM CHLORIDE 0.9% 1,000 ML IV PRN (09:23)
[2024-02-24] MEDS ORDERED: NALBUPHINE HCL INJ 10 MG/ML AMP IV PRN (09:23)
[2024-02-24] MEDS ORDERED: SODIUM CHLORIDE 0.9% PF INJ 10 ML VIAL EPI PRN (09:23)
[2024-02-24] MEDS ORDERED: NALOXONE HCL 0.4 MG/1 ML VIAL/CARP IV PRN (09:23)
[2024-02-24] MEDS ORDERED: ROPIVACAINE 0.5% PF 5 MG/ML 20 ML VIAL EPI PRN (09:23)
[2024-02-24] MEDS ORDERED: fentANYL 2 MCG/ML BUPIVacaine 0.125%-NSS 100ML BAG EPI PRN (09:23)
[2024-02-24] MEDS ORDERED: LIDOCAINE 2% MPF LOCAL 5 ML VIAL EPI PRN (09:23)
[2024-02-24] MEDS ORDERED: ePHEDrine sulfate 50 MG/ML AMP IV PRN (09:23)
[2024-02-24] MEDS: ePHEDrine sulfate 50 MG/ML AMP ONE (10:03)
[2024-02-24] MEDS: ONDANSETRON INJ 2 MG/ML 2 ML VIAL ONE (10:47)
--- NOTE | 2024-02-24 10:47 | Obstetrical Progress Note ---
Date of Service February 24, 2024 Assessment & Plan (1) with third trimester bleeding: Plan: Pt doing well Epidural analgesia in place FHr; CAT1 Ctx 2-4mins VE: 8-9/100/-1 AROM-clear anticipate VD Admission and Anticipated Discharge Date Admission Date: February 24, 2024 Results & Data Vital Signs (Past 12 Hours) Vital Signs Temp Pulse Resp BP Pulse Ox 02/24/24 10:41 100 02/24/24 10:41 86 02/24/24 10:36 100 02/24/24 10:36 102 H 02/24/24 10:31 100 02/24/24 10:31 100 H 02/24/24 10:31 102 H 02/24/24 10:31 117/64 02/24/24 10:26 100 02/24/24 10:26 95 H 02/24/24 10:21 100 02/24/24 10:21 92 H 02/24/24 10:16 100 02/24/24 10:16 93 H 02/24/24 10:15 89 02/24/24 10:15 116/62 02/24/24 10:11 100 02/24/24 10:11 90 02/24/24 10:06 100 02/24/24 10:06 85 02/24/24 10:01 100 02/24/24 10:01 90 02/24/24 10:01 88 02/24/24 10:01 122/68 02/24/24 09:56 100 02/24/24 09:56 89 02/24/24 09:51 100 02/24/24 09:51 88 02/24/24 09:46 100 02/24/24 09:46 92 H 02/24/24 09:41 100 02/24/24 09:41 101 H 02/24/24 09:40 90 02/24/24 09:40 109/63 02/24/24 09:36 100 02/24/24 09:36 88 02/24/24 09:35 89 02/24/24 09:35 114/62 02/24/24 09:31 100 02/24/24 09:31 100 H 02/24/24 09:30 93 H 02/24/24 09:30 111/61 02/24/24 09:26 100 02/24/24 09:26 92 H 02/24/24 09:25 100 H 02/24/24 09:25 118/63 02/24/24 09:21 100 02/24/24 09:21 94 H 02/24/24 09:20 90 02/24/24 09:20 120/64 02/24/24 09:16 100 02/24/24 09:16 93 H 02/24/24 09:15 95 H 02/24/24 09:15 137/62 02/24/24 09:11 98 02/24/24 09:11 92 H 02/24/24 09:08 73 02/24/24 09:08 127/71 02/24/24 09:06 86 L 02/24/24 09:06 75 02/24/24 09:01 100 02/24/24 09:01 82 02/24/24 08:56 99 02/24/24 08:56 90 02/24/24 08:51 99 02/24/24 08:51 91 H 02/24/24 08:46 100 02/24/24 08:46 87 02/24/24 08:41 100 02/24/24 08:41 78 02/24/24 08:36 100 02/24/24 08:36 84 02/24/24 08:31 100 02/24/24 08:31 87 02/24/24 08:26 100 02/24/24 08:26 82 02/24/24 08:21 100 02/24/24 08:21 86 02/24/24 08:12 87 02/24/24 08:12 128/75 02/24/24 08:11 100 02/24/24 08:11 92 H 02/24/24 08:06 100 02/24/24 08:06 85 02/24/24 08:01 100 02/24/24 08:01 93 H 02/24/24 06:50 36.6 C 86 18 124/78
--- NOTE | 2024-02-24 11:00 | Obstetrical Progress Note ---
Date of Service February 24, 2024 Assessment & Plan (1) with third trimester bleeding: Plan Deceleration x 4 mins On arrival to room, pt was on her left side with oxygen mask on FJrt was in 80's VE: 10/100/+1 FSE placed fetus responded to scalp stimulation FHR returned to baseline Will start pushing soon Admission and Anticipated Discharge Date Admission Date: February 24, 2024 Results & Data Vital Signs (Past 12 Hours) Vital Signs Temp Pulse Resp BP Pulse Ox 02/24/24 10:51 100 02/24/24 10:51 79 02/24/24 10:47 78 02/24/24 10:47 111/63 02/24/24 10:46 99 02/24/24 10:46 79 02/24/24 10:45 73 02/24/24 10:45 115/67 02/24/24 10:41 100 02/24/24 10:41 86 02/24/24 10:36 100 02/24/24 10:36 102 H 02/24/24 10:31 100 02/24/24 10:31 100 H 02/24/24 10:31 102 H 02/24/24 10:31 117/64 02/24/24 10:26 100 02/24/24 10:26 95 H 02/24/24 10:21 100 02/24/24 10:21 92 H 02/24/24 10:16 100 02/24/24 10:16 93 H 02/24/24 10:15 89 02/24/24 10:15 116/62 02/24/24 10:11 100 02/24/24 10:11 90 02/24/24 10:06 100 02/24/24 10:06 85 02/24/24 10:01 100 02/24/24 10:01 90 02/24/24 10:01 88 02/24/24 10:01 122/68 02/24/24 09:56 100 02/24/24 09:56 89 02/24/24 09:51 100 02/24/24 09:51 88 02/24/24 09:46 100 02/24/24 09:46 92 H 02/24/24 09:41 100 02/24/24 09:41 101 H 02/24/24 09:40 90 02/24/24 09:40 109/63 02/24/24 09:36 100 02/24/24 09:36 88 02/24/24 09:35 89 02/24/24 09:35 114/62 02/24/24 09:31 100 02/24/24 09:31 100 H 02/24/24 09:30 93 H 02/24/24 09:30 111/61 02/24/24 09:26 100 02/24/24 09:26 92 H 02/24/24 09:25 100 H 02/24/24 09:25 118/63 02/24/24 09:21 100 02/24/24 09:21 94 H 02/24/24 09:20 90 02/24/24 09:20 120/64 02/24/24 09:16 100 02/24/24 09:16 93 H 02/24/24 09:15 95 H 02/24/24 09:15 137/62 02/24/24 09:11 98 02/24/24 09:11 92 H 02/24/24 09:08 73 02/24/24 09:08 127/71 02/24/24 09:06 86 L 02/24/24 09:06 75 02/24/24 09:01 100 02/24/24 09:01 82 02/24/24 08:56 99 02/24/24 08:56 90 02/24/24 08:51 99 02/24/24 08:51 91 H 02/24/24 08:46 100 02/24/24 08:46 87 02/24/24 08:41 100 02/24/24 08:41 78 02/24/24 08:36 100 02/24/24 08:36 84 02/24/24 08:31 100 02/24/24 08:31 87 02/24/24 08:26 100 02/24/24 08:26 82 02/24/24 08:21 100 02/24/24 08:21 86 02/24/24 08:12 87 02/24/24 08:12 128/75 02/24/24 08:11 100 02/24/24 08:11 92 H 02/24/24 08:06 100 02/24/24 08:06 85 02/24/24 08:01 100 02/24/24 08:01 93 H 02/24/24 06:50 36.6 C 86 18 124/78
[2024-02-24] MEDS: fentaNYL citrate PF 100 MCG/2 ML VIAL ONE (11:25)
[2024-02-24] MEDS: LIDOCAINE 2%/EPINEPHRINE 1:200,000 20 ML PF EPI STA (11:26)
[2024-02-24] MEDS: fentaNYL citrate PF 100 MCG/2 ML VIAL EPI STA (11:26)
[2024-02-24] MEDS: SODIUM CHLORIDE 0.9% PF INJ 10 ML VIAL ONE (11:26)
[2024-02-24] MEDS: BUPIVACAINE 0.25% PF 30 ML VIAL EPI STA (11:26)
[2024-02-24] MEDS: SODIUM CHLORIDE 0.9% PF INJ 10 ML VIAL EPI STA (11:26)
[2024-02-24] MEDS: OXYTOCIN 30 UNITS/NSS 30 UNITS/500 ML BAG IV PRN (12:36)
[2024-02-24] MEDS: miSOPROStoL 200 MCG TAB ONE (12:41)
[2024-02-24] MEDS ORDERED: BENZOCAINE 20% SPRY 85 APPLN/85 GM CAN EXT PRN (12:43)
[2024-02-24] MEDS ORDERED: ACETAMINOPHEN 325 MG TAB PO PRN (12:43)
[2024-02-24] MEDS ORDERED: HYDROCORTISONE ACETATE 25 MG SUPP PR PRN (12:43)
[2024-02-24] MEDS ORDERED: bisacodyL 10 MG SUPP PR PRN (12:43)
--- NOTE | 2024-02-24 12:47 | Delivery Summary ---
Vaginal Delivery Summary Date of Service February 24, 2024 Vaginal Delivery Summary DELIVERY NOTE Patient delivered a live male in left occiput anterior presentation there was no nuchal cord which was easily reduced. was delivered and placed on mother's abdomen. Delayed cord clamping was performed. Cord blood is obtained Cord gasses are not obtained Meconium is absent Placenta is spontaneously delivered. Placenta appears grossly normal and has 3 vessel cord Inspection of the perineum showed no laceration. Rectal exam post repair showed good sphincter tone no sutures palpated in the rectum. Quantitative blood loss is 45 cc per Infants weight and scores are in the pediatric record Mother and baby are stable in in the recovery
[2024-02-24] MEDS: DIPHTHER/TETAN/PERTUS Vaccine (Tdap, Adol/Adult) 0.5mL IM ONE (13:00)
[2024-02-24] MEDS: miSOPROStoL 200 MCG TAB PR ONE (13:00)
[2024-02-24] MEDS: DOCUSATE SODIUM 100 MG CAP PO SCH (21:16)
[2024-02-25 06:23] LABS: Hemoglobin 10.7 g/dl (12.0-16.0); Mean Corpuscular Hemoglobin 32.4 pg (25.0-34.0); Mean Corpuscular Hgb Conc 34.5 g/dL (32.0-36.0); Mean Corpuscular Volume 93.9 fL (80.0-100.0); Mean Platelet Volume 10.1 fL (9.4-12.4); Platelet Count 204 K/uL (130-400); RDW Standard Deviation 44.3 fL (36.4-46.3); White Blood Count 13.46 K/ul (4.8-10.8)
[2024-02-25] MEDS: PRENATAL VITAMIN 1 TAB PO SCH (08:28)
--- NOTE | 2024-02-25 09:24 | Obstetrical Progress Note ---
Date of Service February 25, 2024 Assessment & Plan Admission and Anticipated Discharge Date Admission Date: February 24, 2024 Subjective abdomen soft and non tender ambulating well no calf tenderness vaginal bleeding scant ugh 10.7 Results & Data Vital Signs (Past 12 Hours) Vital Signs Temp Pulse Resp BP Pulse Ox O2 Del Method 02/25/24 03:50 36.9 C 88 18 108/65 100 Room Air 02/24/24 23:30 36.7 C 87 20 105/67 99 Room Air
--- NOTE | 2024-02-25 09:25 | Obstetrical Progress Note ---
Date of Service February 25, 2024 Assessment & Plan Admission and Anticipated Discharge Date Admission Date: February 24, 2024 Subjective vaginal delivery at 39 weeks 2 days Results & Data Vital Signs (Past 12 Hours) Vital Signs Temp Pulse Resp BP Pulse Ox O2 Del Method 02/25/24 03:50 36.9 C 88 18 108/65 100 Room Air 02/24/24 23:30 36.7 C 87 20 105/67 99 Room Air
[2024-02-25 12:37] VITALS: TEMP 98.1
[2024-02-25 13:16] VITALS: BP 125/79; PULSE 93; RESP 18; O2SAT 99
--- NOTE | 2024-02-25 13:27 | Consultation ---
Date of Consultation February 25, 2024 Assessment & Plan (1) Chest pain: (2) state: Patient is 28 year old female with PMH pituitary adenoma, vertigo, gestational diabetes mellitus in third trimester s/p vaginal delivery on 02/24/24 seen in medical consultation with c/o CP today. CXR: no acute infiltrate or pneumothorax EKG: sinus rhythm without ST changes Obtain CTA chest to r/o PE CTA Chest: No PE or acute findings Patient was to be discharged home from OB She reports CP is much decreased currently Would recommend Tylenol as needed. If CP would be recurrent or develops SOB, fever recommend ER evaluation. Disposition per primary team Pt was seen and care coordinated with Dr Arreola. See addendum I spent a total of 45 minutes reviewing notes, outpatient records, labs, medication, coordinating, documenting and providing care for this patient excluding time spent in the performance of separately billed services. Supervising Physician Co-Signing Physician Notes Patient seen and examined Patient had vaginal delivery yesterday Was planned for discharge today but developed left sided chest pain about an hour ago, not referred, mild, not associated with SOB, coug On exam, General: Well hydrated, no acute distress a Eyes: PERRL, conjunctivae normal, not pale, anicteric sclerae, EOM intact bilaterally ENMT: External ear and nose normal, oropharynx normal Neck: Normal visual inspection Respiratory: Normal respiratory effort, no respiratory distress, lungs clear to auscultation, no crackles and no wheezes Cardiovascular: RRR S1 S2 Chest (Breasts): No chest wall tenderness Gastrointestinal (Abdomen): Abdomen is protuberant, soft, nontender Musculoskeletal: No pedal edema Neurologic: No focal weakness, sensation grossly intact Psychiatric: Alert and oriented x 3, euthymic affect Reviewed recent EKG and Echo from [facility] in 12/2023 which were normal EKG was reviewed by me. Normal EKG CT PE was negative for PE Chest pain likely musculoskeletal I spent a total of 45 minutes coordinating, documenting and providing care for this patient excluding time spent in performance of separately billed services History of Present Illness Requesting Physician: Dr Luong Reason for Consultation: CP Attending Physician: Jeffery Copeland MD History of Present Illness Patient is 28 year old female with PMH pituitary adenoma, vertigo, gestational diabetes mellitus in third trimester s/p vaginal delivery on 02/24/24 seen in medical consultation with c/o CP today. Patient reports a little before noon today started with left upper chest discomfort described as sharp and non- radiating. Rates 4 out of 10 on pain scale. Denies SOB or pain with inspiration or movement. Denies cough, LE edema or pain. Denies history PE/DVT. Denies fever/chills, diaphoresis, N/V/D/C, MEDINA, dizziness, syncope, SOB, orthopnea, palpitations, abdominal pain, paresthesias, rashes, urinary symptoms. Allergies Allergy/AdvReac Type Severity Reaction Status Date / Time No Known Allergies Allergy Verified 02/04/24 15:34 Home Medications Medication Instructions Recorded Confirmed Type ferrous sulfate 325 mg (65 mg 325 mg PO DAILY 02/02/24 02/24/24 History iron) tablet vits no.124-ferrous fum 1 tab PO DAILY 02/02/24 02/24/24 History 27 mg iron-folic acid 800 mcg tablet ( Vitamin) Patient History Medical History Gestational diabetes Pituitary adenoma Cholelithiasis Vertigo Surgical History No history of previous surgery Family History Mother Anemia Father Gout Aunt Thyroid cancer Grandfather (Maternal) Colon cancer Prostate cancer Social History Smoking Status: Never smoker Hx Alcohol Use: No Hx Substance Use: No Preferred Language: Macanese Communication Ability: Effective Otolaryngology Physician Required: No Beliefs That Will Affect Care: None marital status: Current Living Situation: Spouse Other Information That Helps Us Care for You: No Feels Safe at Home: Yes Safety Concerns: Feels Safe At This Time Assistive Devices: None Review of Systems Review of Systems: All systems reviewed & are unremarkable except as noted in HPI & below Physical Exam Physical Exam: PE per Dr Arreola Results & Data Vital Signs (Past 12 Hours) Vital Signs Temp Pulse Pulse Resp BP BP Pulse Ox 02/25/24 13:00 93 H 18 125/79 99 02/25/24 12:44 36.7 C 88 78 16 108/65 115/70 98 02/25/24 11:55 36.7 C 78 16 115/70 98 02/25/24 03:50 36.9 C 88 18 108/65 100 O2 Del Method 02/25/24 13:00 Room Air 02/25/24 12:44 02/25/24 11:55 Room Air 02/25/24 03:50 Room Air Laboratory Results Short CBC 02/25/24 Range/Units 06:06 WBC 13.46 H (4.8-10.8) K/ul Hgb 10.7 L (12.0-16.0) g/dl Hct 31.0 L (37.0-47.0) % Plt Count 204 (130-400) K/uL Diagnostic Findings Chest X-Ray 02/25/24 13:22 XR chest 1V portable CLINICAL HISTORY: cp TECHNIQUE: Single frontal radiograph of the chest was obtained. Comparison: None available at the time of this dictation. FINDINGS: No lines and tubes are seen. The cardiomediastinal silhouette is normal. The lungs are clear. No evidence of pleural effusion or pneumothorax. IMPRESSION: No acute chest disease. ACT 112: Negative or not required by law. Electronically signed by: Bernardo Covington M.D. 02/25/2024 1:42 PM Chest CTA 02/25/24 14:30 CT ANGIOGRAPHY OF THE CHEST, PULMONARY EMBOLUS PROTOCOL CLINICAL HISTORY: Chest pain. Evaluate for pulmonary embolus. COMPARISON STUDY: Chest radiograph performed earlier today. TECHNIQUE: Following IV administration of 120 mL of Optiray, helical axial images of the chest were obtained utilizing the pulmonary embolus protocol. Maximal intensity projections and sagittal and coronal reformats were viewed on an independent 3D workstation. IV contrast was administered without compl ication. Automated exposure control was utilized for the study. A dose lowering technique was utilized adhering to the principles of ALARA. CT DOSE: 709.82 mGy.cm FINDINGS: No pulmonary emboli are identified. There is no thoracic aortic dissection. Incidental note is made of an aberrant right subclavian artery. There is no pericardial effusion. No enlarged axillary, mediastinal or hilar lymph nodes are present. The central airways are patent. No pneumothorax or pleural effusion. There is no consolidation. There are no suspicious pulmonary nodules. IMPRESSION: 1. No pulmonary emboli identified. 2. No acute intrathoracic findings. ACT 112: Negative or not required by law. Electronically signed by: Kendall Kong M.D. 02/25/2024 3:14 PM ECG Additional Comments: Sinus rhythm, no acute ST changes noted per my interpretation
--- NOTE | 2024-02-25 13:43 | XRay Report ---
XR chest 1V portable CLINICAL HISTORY: cp TECHNIQUE: Single frontal radiograph of the chest was obtained. Comparison: None available at the time of this dictation. FINDINGS: No lines and tubes are seen. The cardiomediastinal silhouette is normal. The lungs are clear. No evid ence of pleural effusion or pneumothorax. IMPRESSION: No acute chest disease. ACT 112: Negative or not required by law. Electronically signed by: Bernardo Covington M.D. 02/25/2024 1:42 PM
[2024-02-25] MEDS: OPTIRAY 320 125ml IV ONE (15:00)
--- NOTE | 2024-02-25 15:17 | CT Scan Report ---
CT ANGIOGRAPHY OF THE CHEST, PULMONARY EMBOLUS PROTOCOL CLINICAL HISTORY: Chest pain. Evaluate for pulmonary embolus. COMPARISON STUDY: Chest radiograph performed earlier today. TECHNIQUE: Following IV administration of 120 mL of Optiray, helical axial images of the chest were o btained utilizing the pulmonary embolus protocol. Maximal intensity projections and sagittal and cor onal reformats were viewed on an independent 3D workstation. IV contrast was administered without co mplication. Automated exposure control was utilized for the study. A dose lowering technique was ut ilized adhering to the principles of ALARA. CT DOSE: 709.82 mGy.cm FINDINGS: No pulmonary emboli are identified. There is no thoracic aortic dissection. Incidental not e is made of an aberrant right subclavian artery. There is no pericardial effusion. No enlarged axill nahum, mediastinal or hilar lymph nodes are present. The central airways are patent. No pneumothorax or pleural effusion. There is no consolidation. There are no suspicious pulmonary nodules. IMPRESSION: 1. No pulmonary emboli identified. 2. No acute intrathoracic findings. ACT 112: Negative or not required by law. Electronically signed by: Kendall Kong M.D. 02/25/2024 3:14 PM
[2024-02-25] MEDS: IBUPROFEN 600 MG TAB PO PRN (15:39)
--- NOTE | 2024-02-25 16:56 | Electrocardiogram Report ---
Test Reason : Blood Pressure : */* mmHG Vent. Rate : 84 BPM Atrial Rate : 84 BPM P-R Int : 148 ms QRS Dur : 86 ms QT Int : 348 ms P-R-T Axes : 49 74 43 degrees QTcB Int : 411 ms Normal sinus rhythm Normal ECG No previous ECGs available Confirmed by Stephon Arellano ([id number]) on 02/25/2024 4:56:19 PM Referred By: Jeffery Copeland Confirmed By: Stephon Arellano
[2024-02-25] MEDS ORDERED: bisacodyL 5 MG TABEC PO SCH (20:00)
== END 2024-02-25 15:58 | disposition home or self-care (01) | DRG 807 ==
LOC: OPB 06:41 → 4S1 06:45 → 4E2 15:42

== ENCOUNTER 2025-03-01 15:01 | Inpatient (IN) ==
[2025-03-01] MEDS ORDERED: CALCIUM CARBONATE 500 MG CHEWABLE TAB PO PRN (15:31)
[2025-03-01] MEDS ORDERED: LIDOCAINE 1% LOCAL 20 ML VIAL INFIL PRN (15:31)
[2025-03-01 16:16] LABS: Hematocrit (blood only) 34.4 % (37.0-47.0); Hemoglobin 11.8 g/dL (12.0-16.0); Mean Corpuscular Hemoglobin 32.1 pg (25.0-34.0); Mean Corpuscular Volume 93.5 fL (80.0-100.0); Platelet Count 191 K/uL (130-400); RDW Standard Deviation 45.1 fL (36.4-46.3); Red Blood Count 3.68 M/uL (4.20-5.40); White Blood Count 7.65 K/ul (4.8-10.8)
[2025-03-01] MEDS ORDERED: ROPIVACAINE 0.5% PF 5 MG/ML 20 ML VIAL EPI PRN (16:23)
[2025-03-01] MEDS ORDERED: BUPIVACAINE 0.25% PF 30 ML VIAL EPI PRN (16:23)
[2025-03-01] MEDS ORDERED: NALOXONE HCL 1 MG in SODIUM CHLORIDE 0.9% 1,000 ML IV PRN (16:23)
[2025-03-01] MEDS ORDERED: diphenhydrAMINE 50 MG/ML VIAL IV PRN (16:23)
[2025-03-01] MEDS ORDERED: NALOXONE HCL 0.4 MG/1 ML VIAL/CARP IV PRN (16:23)
[2025-03-01] MEDS ORDERED: fentANYL 2 MCG/ML BUPIVacaine 0.125%-NSS 100ML BAG EPI PRN (16:23)
[2025-03-01] MEDS ORDERED: LIDOCAINE 2% MPF LOCAL 5 ML VIAL EPI PRN (16:23)
[2025-03-01] MEDS ORDERED: NALBUPHINE HCL INJ 10 MG/ML AMP IV PRN (16:23)
[2025-03-01] MEDS ORDERED: SODIUM CHLORIDE 0.9% PF INJ 10 ML VIAL EPI PRN (16:23)
--- NOTE | 2025-03-01 16:23 | Anesthesiology Consultation ---
Date of Service March 01, 2025 Assessment & Plan Chart Review Chart Review: Acceptable Risk for Surgery Consults Requested none ASA ASA2 Proposed Anesthesia Anesthesia Type: Labor Epidural Risk / Benefits Reviewed With: PT / POA / Parent / Guardian, Accepts Plan and Informed Consent Obtained History Height/Weight Height: 5 ft 6 in Weight: 88.904 kg Allergies Allergy/AdvReac Type Severity Reaction Status Date / Time No Known Allergies Allergy Verified 02/04/24 15:34 Medications Home Medications Medication Instructions Recorded Confirmed Last Taken ferrous sulfate 325 mg (65 mg 325 mg PO DAILY 02/02/24 03/01/25 02/22/24 20:00 iron) tablet vits no.124-ferrous fum 1 tab PO DAILY 02/02/24 03/01/25 02/23/24 20:00 27 mg iron-folic acid 800 mcg tablet ( Vitamin) Past Medical History Medical History Gestational diabetes Pituitary adenoma Cholelithiasis Vertigo Past Family History Family History Mother Anemia Father Gout Aunt Thyroid cancer Grandfather (Maternal) Colon cancer Prostate cancer Past Surgical History Surgical History No history of previous surgery Social History Smoking Status: Never smoker Hx Alcohol Use: No Hx Substance Use: No substance use type: does not use Physical Exam Vital Signs Last Vital Signs Temp 36.5 C 03/01/25 15:14 Pulse 100 H 03/01/25 16:20 Resp 16 03/01/25 15:14 BP 118/70 03/01/25 16:20 Pulse Ox 98 03/01/25 16:17 Constitutional + acute distress ENMT Mouth: no TMJ abnormality Thyromental Distance: > or= 3.5 Finger Breadths Mallampati Class: II Neck normal visual inspection Respiratory normal respiratory effort Cardiovascular Rate/Rhythm: regular rate Musculoskeletal Spine: lumbar spine normal to inspection; normal cervical ROM Extremities: extremities normal to inspection; full ROM of extremities Neurologic moves all extremities Motor/Sensory: no sensory deficit Psychiatric Orientation: alert and oriented x 3 Testing Laboratory Results 03/01/25 15:40
[2025-03-01] MEDS: SODIUM CHLORIDE 0.9% PF INJ 10 ML VIAL ONE (16:26)
[2025-03-01] MEDS: LIDOCAINE 2%/EPINEPHRINE 1:200,000 20 ML PF ONE (16:26)
[2025-03-01] MEDS: BUPIVACAINE 0.25% PF 30 ML VIAL ONE (16:26)
[2025-03-01] MEDS: fentANYL 2 MCG/ML BUPIVacaine 0.125%-NSS 100ML BAG ONE (16:26)
[2025-03-01] MEDS: LACTATED RINGER'S 1,000 ML IV PRN (16:27)
--- NOTE | 2025-03-01 16:33 | Anesthesia Procedure Note ---
Anesthesia Procedure Note Neuraxial Placement Note Consent: Risk / Benefits Reviewed With: PT / POA / Parent / Guardian, Accepts Plan and Informed Consent Obtained Monitors attached: Blood Pressure, CO2, EKG and Pulse Oximetry
[2025-03-01] MEDS: SODIUM CHLORIDE 0.9% PF INJ 10 ML VIAL EPI STA (17:31)
[2025-03-01] MEDS: BUPIVACAINE 0.25% PF 30 ML VIAL EPI STA (17:31)
[2025-03-01] MEDS: LIDOCAINE 2%/EPINEPHRINE 1:200,000 20 ML PF EPI STA (17:31)
[2025-03-01] MEDS: OXYTOCIN 30 UNITS/NSS 30 UNITS/500 ML BAG IV PRN (20:18)
[2025-03-01] MEDS: METHYLERGONOVINE MALEATE 0.2 MG/ML AMP IM ONE (20:18)
[2025-03-01] MEDS ORDERED: OXYTOCIN 30 UNITS/NSS 30 UNITS/500 ML BAG IV PRN (20:24)
[2025-03-01] MEDS ORDERED: ACETAMINOPHEN W/CODEINE #3 1 TAB PO PRN (20:24)
[2025-03-01] MEDS ORDERED: ACETAMINOPHEN 325 MG TAB PO PRN (20:24)
[2025-03-01] MEDS ORDERED: HYDROCORTISONE ACETATE 25 MG SUPP PR PRN (20:24)
--- NOTE | 2025-03-01 20:29 | Delivery Summary ---
Vaginal Delivery Summary Date of Service March 01, 2025 Vaginal Delivery Summary Patient is been followed in the office for [facility] and delivery. She was admitted at 39 weeks 6 days gestation. She is a 3 para 2. Stated she was having regular contractions for several hours prior to admission patient to the labor floor she was 4 to 5 cm dilated cervix was 100% effaced membranes were bulging. Patient requested epidural anesthesia. Epidural anesthesia was administered and was successful. Following administration of epidural anesthesia membranes were ruptured surgically. Fluid was clear. She labor spontaneously went to full dilatation and delivered a live female via direct occiput anterior position over an intact perineum. Infant was suctioned through the mouth and the nose. Shoulders were delivered without difficulty. Cord was allowed to pulse for 1 full minute. Cord was then clamped cut by the father. Cord blood was taken. With IV Pitocin and IM Methergine given placenta was removed intact. Perineum was intact there were no lacerations. Qu antitative blood loss was 125 mL. Patient tolerated delivery well.
[2025-03-01] MEDS: DIPHTHER/TETAN/PERTUS Vaccine (Tdap, Adol/Adult) 0.5mL IM ONE (20:42)
[2025-03-01] MEDS: IBUPROFEN 600 MG TAB PO PRN (21:56)
[2025-03-01] MEDS: ACETAMINOPHEN 325 MG TAB PO PRN (21:56)
--- NOTE | 2025-03-01 22:18 | Anesthesia Procedure Note ---
Date of Service March 01, 2025 Anesthesia Post Epidural Note Vital Signs Vital Signs: Temp Pulse Resp BP Pulse Ox 36.7 C 89 18 108/71 100 03/01/25 21:50 03/01/25 22:05 03/01/25 21:50 03/01/25 22:05 03/01/25 20:22 Pain Intensity Right Abdomen: Pain Intensity: 2 Notes Mental Status: alert / awake / arousable and participated in evaluation Nausea / Vomiting: adequately controlled Pain: adequately controlled Airway Patency, RR, SpO2: stable & adequate BP & HR: stable & adequate Hydration State: stable & adequate Neuraxial Anesthesia: was administered and sensory block resolved Anesthetic Complications: no major complications apparent and Pt Satisfied with anesthetic care Epidural: Removed without complications and With tip intact
[2025-03-02 06:37] LABS: Hematocrit (blood only) 31.4 % (37.0-47.0); Hemoglobin 11.0 g/dL (12.0-16.0); Mean Corpuscular Hemoglobin 32.7 pg (25.0-34.0); Mean Corpuscular Volume 93.5 fL (80.0-100.0); Platelet Count 182 K/uL (130-400); RDW Standard Deviation 44.2 fL (36.4-46.3); Red Blood Count 3.36 M/uL (4.20-5.40); White Blood Count 10.04 K/ul (4.8-10.8)
[2025-03-02] MEDS: PRENATAL VITAMIN 1 TAB PO SCH (08:21)
[2025-03-02] MEDS: DOCUSATE SODIUM 100 MG CAP PO SCH (08:21)
[2025-03-02] MEDS: BENZOCAINE 20% SPRY 85 APPLN/85 GM CAN EXT PRN (08:21)
--- NOTE | 2025-03-02 09:10 | Obstetrical Progress Note ---
Date of Service March 02, 2025 Assessment & Plan Admission and Anticipated Discharge Date Admission Date: March 01, 2025 Subjective Patient is seen and examined. She feels well, no complaints. Ambulating without dizziness Voiding without difficulty Tolerating regular diet with out N&V Bleeding is minimal No fever/ chills/ CP/ SOB/ N&V/ Leg pain Breast feeding without problems Vital Signs Height Weight Body Mass Index Blood Pressure Blood Pressure Position Temperature Temperature Source 5 ft 6 in 88.904 kg 31.6 107/69 Semi-fowlers 36.7 C Oral 03/01/25 16:23 03/01/25 16:23 03/01/25 15:10 03/02/25 08:10 03/02/25 08:10 03/02/25 08:10 03/02/25 08:10 Pulse Rate Respiratory Rate Pulse Oximetry 92 H 16 96 03/02/25 08:10 03/02/25 08:10 03/02/25 08:10 Lab Results 03/01/25 03/01/25 03/02/25 Range/Units 15:40 16:24 05:51 WBC 7.65 10.04 (4.8-10.8) K/ul RBC 3.68 L 3.36 L (4.20-5.40) M/uL Hgb 11.8 L 11.0 L (12.0-16.0) g/dL Hct 34.4 L 31.4 L (37.0-47.0) % MCV 93.5 93.5 (80.0-100.0) fL MCH 32.1 32.7 (25.0-34.0) pg MCHC 34.3 35.0 (32.0-36.0) g/dL RDW Std Deviation 45.1 44.2 (36.4-46.3) fL RDW Coeff of Wild 13.2 13.0 (11.5-14.5) % Plt Count 191 182 (130-400) K/uL MPV 10.3 10.5 (9.4-12.4) fL POC Glucose 81 (70-99) mg/dl Treponema pallidum Ab Negative (Negative) PE: General: Alert, orientedx3, NAD Abd: soft, NT, fundus firm, below Umbilicus Perineum intact, Lochia rubra minimal Ext; NT, no edema AP: 29 yo s/p , ppd# 1 VSS Afebrile doing well Continue routine care All questions were answered Desires d/c tonight after 24 hours Discussed when to call D/C home , f/u in office Results & Data Vital Signs (Past 12 Hours) Vital Signs Temp Pulse Pulse Resp BP BP Pulse Ox 03/02/25 08:10 36.7 C 92 H 16 107/69 96 03/02/25 03:41 37.0 C 90 16 106/67 99 03/01/25 23:00 37.0 C 82 16 121/80 97 03/01/25 22:20 36.8 C 20 03/01/25 22:20 89 118/75 03/01/25 22:05 89 108/71 03/01/25 21:50 36.7 C 18 03/01/25 21:50 88 101/65 03/01/25 21:35 82 112/60 03/01/25 21:21 86 108/68 03/01/25 21:20 20 O2 Del Method 03/02/25 08:10 Room Air 03/02/25 03:41 Room Air 03/01/25 23:00 Room Air 03/01/25 22:20 03/01/25 22:20 03/01/25 22:05 03/01/25 21:50 03/01/25 21:50 03/01/25 21:35 03/01/25 21:21 03/01/25 21:20
[2025-03-02] MEDS: METHYLERGONOVINE MALEATE 0.2 MG/ML AMP ONE (09:44)
[2025-03-02 12:03] VITALS: O2SAT 98
[2025-03-02 19:38] VITALS: BP 99/65; RESP 18; TEMP 98.6
[2025-03-02 20:36] VITALS: PULSE 94
== END 2025-03-02 20:36 | disposition home health service (06) | DRG 807 ==
LOC: OPB 15:01 → 4S1 15:03 → 4E2 22:58